=== PATIENT | female | born 1965 | race Two or more races ===

== ENCOUNTER 2018-04-07 12:30 | Outpatient (CLI) | payer OTHER ==
[~2018-04-07 12:30] MED LIST: NEURONTIN300 MG PO; SYNTHROID88 MCG PO; TEGRETOL XR200 MG PO
== END 2018-04-07 16:56 | disposition home or self-care (01) ==
LOC: SONOGRAMA 12:30
DX: M25.521 Pain in right elbow (principal)

== ENCOUNTER 2020-08-04 14:29 | Outpatient (CLI) | payer OTHER | END 2020-08-04 14:45 | disposition home or self-care (01) | LOC: MRI 14:29 | PROVIDERS: ATTEND Physical Medicine & Rehabilitation | DX: S83.241A Other tear of medial meniscus, current injury, right knee, initial encounter (principal) | CPT/HCPCS: 73718 ==

== ENCOUNTER → 2020-10-22 | Outpatient (CLI) | payer OTHER | END | disposition home or self-care (01) | LOC: MRI 11:30 | DX: M47.892 Other spondylosis, cervical region (principal) | CPT/HCPCS: 72142 ==